=== PATIENT | male | born 1995 | race Caucasian/White ===

== ENCOUNTER 2018-09-07 10:11 | Emergency (ER) | payer MEDICAID, OTHER ==
[~2018-09-07] VITALS: Ht 167.6 cm; Wt 119.0 kg
[2018-09-07 10:16] VITALS: BP 137/96
[2018-09-07] MEDS ORDERED: DEXAMETHASONE 10 MG/ML VIAL IM ONE (10:55)
[2018-09-07] MEDS ORDERED: CLINDAMYCIN 600 MG/4 ML VIAL IM ONE (10:55)
[2018-09-07 11:30] VITALS: BP 130/90
== END 2018-09-07 11:30 | disposition home or self-care (01) ==
LOC: MED 10:11
DX: J03.90 Acute tonsillitis, unspecified (principal)
CPT/HCPCS: 96372; 99284; J1100; J3490

== ENCOUNTER 2018-09-23 19:08 | Emergency (ER) | payer OTHER ==
[~2018-09-23] VITALS: Ht 167.6 cm; Wt 114.3 kg
[2018-09-23 19:18] VITALS: BP 105/76
--- NOTE | 2018-09-23 19:22 | NUR ---
TO [facility] AMBULATORY, VSS A/W BED AND XRAY, SAULO NOTED
--- NOTE | 2018-09-23 20:54 | NUR ---
PT AMBULATED TO BED 1
--- NOTE | 2018-09-23 21:24 | NUR ---
PT PRESENTS TO ED WITH C/O DRY, NO PRODUCTIVE COUGH X 2 WEEKS. PT DENIES SOB/CP. LUNG SOUNDS CLEAR BILATERALLY. PT REPORTS TAKING COUGH MEDS WITH NO RELIEF. NO DIFFICULTY BREATHING. REPIRATIONS EVEN AND UNLABORED. PT PLACED INTO BED, PENDING MD VINES.
[2018-09-23] MEDS ORDERED: ALBUTEROL SULFATE/IPRATROPIU 3 ML SOL IH ONE (22:30)
[2018-09-23 22:48] VITALS: BP 118/78
--- NOTE | 2018-09-23 22:48 | NUR ---
Patient discharged with v/s stable. Written and verbal after care instructions given and explained. Patient alert, oriented and verbalized understanding of instructions. Ambulatory with steady gait. All questions addressed prior to discharge. ID band removed. Patient advised to follow up with PMD. Rx of ALBUTEROL, THIEN UGALDE given. Patient educated on indication of medication including possible reaction and side effects. Opportunity to ask questions provided and answered.
== END 2018-09-23 22:48 | disposition home or self-care (01) ==
LOC: MED 19:08
DX: J45.909 Unspecified asthma, uncomplicated (principal)
CPT/HCPCS: 71045; 94640; 99283; J7620; Q0092